=== PATIENT | male | born 1965 | race Two or more races ===

== ENCOUNTER 2025-03-24 22:28 | Emergency (ER) | payer OTHER ==
[~2025-03-24] VITALS: Ht 185.4 cm; Wt 82.6 kg
[2025-03-24] MEDS ORDERED: AMLODIPINE-OLM1 EACH (23:48)
[2025-03-25 02:12] LABS: BASO % 1.5 % (0.1-1.2); EOS # 2.11 (0.04-0.54); HEMOGLOBIN 12.5 g/dL (13.7-17.5); LYMPH % 11.8 % (19.3-53.1); MEAN CORPUSCULAR HEMOGLOBIN 31.2 pg (25.6-32.2); MONO # 0.67 (0.24-0.82); MONO % 6.6 % (4.7-12.5); NEUT # 5.99 (1.56-6.13); RED BLOOD COUNT 4.01 M/uL (4.63-6.08); RED CELL DISTRIBUTION WIDTH 14.7 % (11.6-14.4)
[2025-03-25 02:15] LABS: EOS % 20.8 % (0.7-7.0); PLATELET COUNT 121 K/uL (163-369)
== END 2025-03-25 03:54 | disposition home or self-care (01) ==
LOC: ER 22:54
DX: K42.9 Umbilical hernia without obstruction or gangrene (principal)

== ENCOUNTER 2025-06-01 17:20 | Inpatient (IN) | payer OTHER ==
[~2025-06-01 17:20] MED LIST: AMLODIPINE-OLM1 EACH
[2025-06-01 17:30] VITALS: BP 130/80
[2025-06-01] MEDS ORDERED: FENTANYL1 EAC3 (18:11)
[2025-06-01] MEDS ORDERED: ALDACTONE100 MG (18:11)
[2025-06-01] MEDS ORDERED: LASIX40 MG (18:11)
[2025-06-01] MEDS ORDERED: KRISTALOSE10 GM (18:11)
[2025-06-01] MEDS ORDERED: SODIUM CHLORIDE 0.45 % 1,000 ML IV SCH (18:30)
[2025-06-01] MEDS ORDERED: TRAMADOL HCL 50 MG TABLET PO SCH (18:33)
[2025-06-01] MEDS ORDERED: AMINO ACIDS/PROTEIN HYDROLYS 30 ML BLIST.PACK PO NR (19:00)
[2025-06-01 19:21] LABS: BASO % 0.7 % (0.1-1.2); EOS # 0.24 (0.04-0.54); EOS % 2.3 % (0.7-7.0); LYMPH # 0.88 (1.18-3.74); LYMPH % 8.5 % (19.3-53.1); MEAN PLATELET VOLUME 11.10 fl (9.4-12.4); MONO # 0.58 (0.24-0.82); MONO % 5.6 % (4.7-12.5); NEUT # 8.58 (1.56-6.13); NEUT % 82.4 % (34.0-71.1); RED CELL DISTRIBUTION WIDTH 17.0 % (11.6-14.4)
[2025-06-01 19:26] LABS: ERYTHROCYTE SEDIMENTATION RATE 108 mm/hr (0-20)
[2025-06-01 19:49] LABS: INR 1.49
[2025-06-01 20:01] LABS: ALT/SGPT 29.0 U/L (12-78); AST/SGOT 95.0 U/L (15-37); BILIRUBIN TOTAL 2.17 mg/dL (0.3-1.2); BUN CREA RATIO 18.0 (7.0-25.0); CREATININE SERUM 0.57 mg/dL (0.70-1.30); GFR 145.32; GLOBULINA 5.2 G/DL (2.4-3.5); GLUCOSE FASTING 121.0 mg/dL (65-100); LDH 328.0 U/L (87-241); OSMOLALITY SERUM 263.0 MOSM/KG (275-295)
[2025-06-01] MEDS ORDERED: FAMOTIDINE/PF 20 MG in 0.9 % SODIUM CHLORIDE 8 ML IV PUSH SCH (21:00)
[2025-06-01] MEDS ORDERED: ALBUMIN HUMAN-25 0.25GM/ML (50ML) VIAL IV SCH (21:00)
[2025-06-01 21:12] LABS: URINE APPEARANCE Cloudy; URINE BILIRRUBIN Small (NEGATIVE); URINE BLOOD Negative; URINE COLOR Dark Yellow; URINE GLUCOSE Negative (NEGATIVE); URINE KETONE Trace (NEGATIVE); URINE LEUKOCYTE Trace; URINE NITRATE Positive; URINE PROTEIN Trace (NEGATIVE); URINE UROBILINOGEN 1.0 E.U./dl
[2025-06-01 21:16] LABS: URINE BACTERIA 18.0 uL (0.0-1933); URINE CAST 13.05 uL (0.0-1.40); URINE EPITHELIAL CELLS 26.7 uL (0.0-38.8); URINE RBC 29.1 uL (0.0-20.8); URINE WBC 11.0 uL (0.0-23.2)
[2025-06-01 21:28] LABS: URINE CRYSTALS MODERATE /HPF
[2025-06-02 02:23] VITALS: BP 117/68; O2SAT 96
[2025-06-02] MEDS ORDERED: PHYTONADIONE 10 MG/ML AMPUL IV SCH (09:00)
[2025-06-02] MEDS ORDERED: AMINO ACIDS/PROTEIN HYDROLYS 30 ML BLIST.PACK PO SCH (09:00)
[2025-06-02] MEDS ORDERED: DIPHENHYDRAMINE HCL 50 MG/ML VIAL 1ML IV STA (09:07)
[2025-06-02] MEDS ORDERED: METHYLPREDNISOLONE SOD SUCC 125 MG VIAL IV STA (09:07)
[2025-06-02 09:11] VITALS: BP 145/77; O2SAT 96
[2025-06-02 18:03] VITALS: BP 131/80; O2SAT 96
[2025-06-02] MEDS ORDERED: LACTULOSE 20 G/30 ML BLIST.PACK PO ONE (19:30)
[2025-06-02] MEDS ORDERED: MINERAL OIL 30 ML BLIST.PACK PO ONE (19:30)
[2025-06-02] MEDS ORDERED: MAGNESIUM HYDROXIDE 400 MG/5 ML ML PO ONE (19:30)
[2025-06-03 01:00] VITALS: BP 119/67; O2SAT 95
[2025-06-03 08:53] VITALS: BP 118/75; O2SAT 94
[2025-06-03 18:00] VITALS: BP 117/63; O2SAT 97
[2025-06-03] MEDS ORDERED: MORPHINE SULFATE 2 MG/ML CARTRIDGE IV STA (18:13)
[2025-06-03] MEDS ORDERED: MORPHINE SULFATE 2 MG/ML CARTRIDGE IV PRN (18:15)
[2025-06-03 22:41] VITALS: BP 118/75; O2SAT 96
[2025-06-04 02:09] VITALS: BP 100/62; O2SAT 97
[2025-06-04 06:48] LABS: BASO % 0.2 % (0.1-1.2); EOS # 0.02 (0.04-0.54); EOS % 0.2 % (0.7-7.0); LYMPH # 1.20 (1.18-3.74); LYMPH % 9.2 % (19.3-53.1); MEAN PLATELET VOLUME 11.50 fl (9.4-12.4); MONO # 0.68 (0.24-0.82); MONO % 5.2 % (4.7-12.5); NEUT # 11.03 (1.56-6.13); NEUT % 84.4 % (34.0-71.1); RED CELL DISTRIBUTION WIDTH 17.1 % (11.6-14.4)
[2025-06-04 07:11] LABS: ALT/SGPT 21.0 U/L (12-78); AST/SGOT 81.0 U/L (15-37); BILIRUBIN TOTAL 2.74 mg/dL (0.3-1.2); BUN CREA RATIO 32.0 (7.0-25.0); CREATININE SERUM 0.65 mg/dL (0.70-1.30); GFR 124.88; GLOBULINA 3.8 G/DL (2.4-3.5); GLUCOSE FASTING 113.0 mg/dL (65-100); INR 1.48; OSMOLALITY SERUM 268.0 MOSM/KG (275-295)
[2025-06-04 09:39] VITALS: BP 112/68; O2SAT 94
[2025-06-04 18:11] VITALS: BP 121/70; O2SAT 97
[2025-06-05 00:57] VITALS: BP 127/75; O2SAT 96
[2025-06-05 08:00] VITALS: BP 142/82; O2SAT 95
[2025-06-05] MEDS ORDERED: LACTULOSE 20 G/30 ML BLIST.PACK PO STA (09:08)
[2025-06-05 10:36] LABS: BASO % 0.6 % (0.1-1.2); EOS # 0.13 (0.04-0.54); EOS % 0.8 % (0.7-7.0); LYMPH # 2.09 (1.18-3.74); LYMPH % 13.1 % (19.3-53.1); MEAN PLATELET VOLUME 10.90 fl (9.4-12.4); MONO # 1.54 (0.24-0.82); MONO % 9.7 % (4.7-12.5); NEUT # 11.96 (1.56-6.13); NEUT % 75.2 % (34.0-71.1); RED CELL DISTRIBUTION WIDTH 17.0 % (11.6-14.4)
[2025-06-05] MEDS ORDERED: LACTULOSE 20 G/30 ML BLIST.PACK PO SCH (17:00)
[2025-06-05 18:14] VITALS: BP 133/77; O2SAT 96
[2025-06-05] MEDS ORDERED: OxyCODONE HCL 5 MG TABLET (ROXICODONE) PO PRN (19:00)
[2025-06-06 00:50] VITALS: BP 135/73; O2SAT 98
[2025-06-06 08:02] LABS: BUN CREA RATIO 43.0 (7.0-25.0); CREATININE SERUM 0.61 mg/dL (0.70-1.30); GFR 134.38; GLUCOSE FASTING 101.0 mg/dL (65-100); OSMOLALITY SERUM 273.0 MOSM/KG (275-295)
[2025-06-06 08:14] VITALS: BP 130/77; O2SAT 96
[2025-06-06] MEDS ORDERED: LACTULOSE 20 G/30 ML BLIST.PACK PO SCH (13:00)
[2025-06-06] MEDS ORDERED: NA PHOS,M-B/NA PHOS,DI-BA 1 BOTTLE ENEMA RECTAL STA (13:23)
[2025-06-06] MEDS ORDERED: FAMOTIDINE/PF 20 MG/2 ML VIAL ONE (15:34)
[2025-06-06] MEDS ORDERED: HALOPERIDOL LACTATE 5 MG/ML AMPUL IV PRN (16:45)
[2025-06-06] MEDS ORDERED: NA PHOS,M-B/NA PHOS,DI-BA 1 BOTTLE ENEMA RECTAL SCH (17:00)
[2025-06-06] MEDS ORDERED: SODIUM PHOSPHATE,MONO-DIBASIC 230 ML ENEMA RECTAL SCH (17:00)
[2025-06-06] MEDS ORDERED: HALOPERIDOL LACTATE 5 MG/ML AMPUL ONE (17:58)
[2025-06-06 19:17] VITALS: BP 158/83; O2SAT 97
[2025-06-07 00:53] VITALS: BP 148/80; O2SAT 97
[2025-06-07 11:12] VITALS: BP 144/77; O2SAT 96
[2025-06-07] MEDS ORDERED: BENZONATATE 200 MG CAPSULE PO SCH (13:37)
[2025-06-07] MEDS ORDERED: ALBUTEROL SULFATE 3 ML/2.5 MG AMPUL.NEB IH STA (13:40)
[2025-06-07] MEDS ORDERED: FAMOTIDINE/PF 20 MG/2 ML VIAL ONE (15:47)
[2025-06-07 16:53] VITALS: BP 157/50; O2SAT 97
[2025-06-07] MEDS ORDERED: ALBUTEROL SULFATE 3 ML/2.5 MG AMPUL.NEB IH SCH (17:00)
[2025-06-07] MEDS ORDERED: LACTOBACILLUS ACIDOPHILUS 1 CAP CAP PO SCH (17:00)
[2025-06-07] MEDS ORDERED: NA PHOS,M-B/NA PHOS,DI-BA 1 BOTTLE ENEMA RECTAL ONE (18:13)
[2025-06-08 00:08] VITALS: BP 162/94; O2SAT 99
[2025-06-08 01:52] LABS: BUN CREA RATIO 28.0 (7.0-25.0); CHOL HDL RATIO 11.3 (0-5.0); CREATININE SERUM 0.65 mg/dL (0.70-1.30); GFR 124.88; GLUCOSE FASTING 107.0 mg/dL (65-100); LDL 106.0 mg/dl (0-130); OSMOLALITY SERUM 272.0 MOSM/KG (275-295); VLDL 16.0 (0-39)
[2025-06-08 02:00] LABS: HDL 12.0 mg/dl (40-60)
[2025-06-08 02:27] VITALS: BP 160/80; O2SAT 97
[2025-06-08] MEDS ORDERED: CEFTRIAXONE SODIUM 1,000 MG VIAL IV STA (03:06)
[2025-06-08 08:19] VITALS: BP 114/75
[2025-06-08] MEDS ORDERED: CEFTRIAXONE SODIUM 1,000 MG VIAL IV SCH (09:00)
[2025-06-08] MEDS ORDERED: THIAMINE HCL 100 MG/ML 2 ML VIAL IV SCH (13:07)
[2025-06-08] MEDS ORDERED: FAMOTIDINE/PF 20 MG/2 ML VIAL ONE (15:39)
[2025-06-08 16:43] VITALS: BP 133/83
[2025-06-08] MEDS ORDERED: AMINO ACIDS 4.25 %/DEXTROSE 5% 1,000 ML PERIFERAL SCH (17:00)
[2025-06-08] MEDS ORDERED: LEVALBUTEROL HCL 0.63 MG/3 ML SOLUTION IH ONE (17:17)
[2025-06-08] MEDS ORDERED: LEVALBUTEROL HCL 0.63 MG/3 ML SOLUTION IH SCH (21:00)
[2025-06-09 00:58] VITALS: BP 143/71; O2SAT 94
[2025-06-09 04:54] LABS: ERYTHROCYTE SEDIMENTATION RATE 93 mm/hr (0-20)
[2025-06-09 04:55] LABS: BASO % 0.4 % (0.1-1.2); EOS # 0.16 (0.04-0.54); EOS % 1.3 % (0.7-7.0); LYMPH # 1.33 (1.18-3.74); LYMPH % 10.5 % (19.3-53.1); MEAN PLATELET VOLUME 11.30 fl (9.4-12.4); MONO # 1.02 (0.24-0.82); MONO % 8.0 % (4.7-12.5); NEUT # 10.09 (1.56-6.13); NEUT % 79.4 % (34.0-71.1); RED CELL DISTRIBUTION WIDTH 16.8 % (11.6-14.4)
[2025-06-09 05:18] LABS: ALT/SGPT 30.0 U/L (12-78); AST/SGOT 94.0 U/L (15-37); BILIRUBIN TOTAL 3.83 mg/dL (0.3-1.2); BUN CREA RATIO 30.0 (7.0-25.0); GFR 136.97; GLOBULINA 4.3 G/DL (2.4-3.5); GLUCOSE FASTING 95.0 mg/dL (65-100); OSMOLALITY SERUM 264.0 MOSM/KG (275-295)
[2025-06-09 05:24] LABS: CREATININE SERUM 0.6 mg/dL (0.70-1.30)
[2025-06-09 08:00] VITALS: BP 129/74; O2SAT 96
[2025-06-09] MEDS ORDERED: CEFAZOLIN SODIUM 1,000 MG VIAL IV SCH (17:00)
[2025-06-09 17:52] VITALS: BP 160/87
[2025-06-10 00:38] VITALS: BP 137/79; O2SAT 96
[2025-06-10 08:36] VITALS: BP 126/77; O2SAT 96
[2025-06-10 15:18] LABS: BASO % 0.5 % (0.1-1.2); EOS # 0.23 (0.04-0.54); EOS % 1.8 % (0.7-7.0); LYMPH # 1.00 (1.18-3.74); LYMPH % 7.7 % (19.3-53.1); MEAN PLATELET VOLUME 11.40 fl (9.4-12.4); MONO # 0.74 (0.24-0.82); MONO % 5.7 % (4.7-12.5); NEUT # 10.87 (1.56-6.13); NEUT % 83.8 % (34.0-71.1); RED CELL DISTRIBUTION WIDTH 17.0 % (11.6-14.4)
[2025-06-10 17:35] VITALS: BP 146/94; O2SAT 97
[2025-06-11 02:13] VITALS: BP 143/76; O2SAT 97
[2025-06-11 08:13] VITALS: BP 128/76; O2SAT 97
[2025-06-11 17:07] VITALS: BP 141/74; O2SAT 95
[2025-06-12 01:05] VITALS: BP 155/83; O2SAT 97
[2025-06-12 08:12] VITALS: BP 145/77; O2SAT 97
[2025-06-12] MEDS ORDERED: THIAMINE HCL 100 MG TABLET PO SCH (09:00)
[2025-06-12] MEDS ORDERED: SPIRONOLACTONE 50 MG TABLET PO SCH (09:00)
[2025-06-12 19:22] VITALS: BP 159/85; O2SAT 100
[2025-06-12] MEDS ORDERED: LACTULOSE 20 G/30 ML BLIST.PACK PO SCH (21:00)
[2025-06-13 02:06] VITALS: BP 149/82; O2SAT 98
[2025-06-13 08:04] LABS: BASO % 0.5 % (0.1-1.2); EOS # 0.21 (0.04-0.54); EOS % 1.4 % (0.7-7.0); LYMPH # 1.09 (1.18-3.74); LYMPH % 7.5 % (19.3-53.1); MEAN PLATELET VOLUME 12.20 fl (9.4-12.4); MONO # 0.79 (0.24-0.82); MONO % 5.4 % (4.7-12.5); NEUT # 12.27 (1.56-6.13); NEUT % 84.6 % (34.0-71.1); RED CELL DISTRIBUTION WIDTH 17.2 % (11.6-14.4)
[2025-06-13 08:20] LABS: ALT/SGPT 19.0 U/L (12-78); AST/SGOT 79.0 U/L (15-37); BILIRUBIN TOTAL 5.26 mg/dL (0.3-1.2); BUN CREA RATIO 32.0 (7.0-25.0); CREATININE SERUM 0.56 mg/dL (0.70-1.30); GFR 148.32; GLOBULINA 4.9 G/DL (2.4-3.5); GLUCOSE FASTING 93.0 mg/dL (65-100); OSMOLALITY SERUM 270.0 MOSM/KG (275-295)
[2025-06-13 08:24] VITALS: BP 132/73
[2025-06-13 08:55] LABS: INR 1.48
[2025-06-13] MEDS ORDERED: NA PHOS,M-B/NA PHOS,DI-BA 1 BOTTLE ENEMA RECTAL NR (09:00)
[2025-06-13] MEDS ORDERED: AMINO ACIDS 4.25 %/DEXTROSE 5% 1,000 ML PERIFERAL SCH (17:00)
[2025-06-13 17:29] VITALS: BP 152/91
[2025-06-14 02:37] VITALS: BP 149/80; O2SAT 98
[2025-06-14 08:58] VITALS: BP 148/83
[2025-06-14 11:18] LABS: URINE APPEARANCE Clear; URINE BILIRRUBIN Small (NEGATIVE); URINE BLOOD Negative; URINE COLOR Dark Yellow; URINE GLUCOSE Negative (NEGATIVE); URINE KETONE Trace (NEGATIVE); URINE LEUKOCYTE Trace; URINE NITRATE Negative; URINE PROTEIN Trace (NEGATIVE); URINE UROBILINOGEN 1.0 E.U./dl
[2025-06-14 11:34] LABS: URINE EPITHELIAL CELLS 0-4 /HPF; URINE RBC 0-3 /HPF; URINE WBC 0-2 /hpf
[2025-06-14 11:35] LABS: URINE BACTERIA FEW; URINE CRYSTALS MODERATE /HPF
[2025-06-14] MEDS ORDERED: DOCUSATE SODIUM 100MG CAP PO SCH (17:00)
[2025-06-14 18:07] VITALS: BP 149/84; O2SAT 97
[2025-06-15 02:53] VITALS: BP 131/78; O2SAT 96
[2025-06-15 06:16] LABS: BASO % 0.6 % (0.1-1.2); EOS # 0.24 (0.04-0.54); EOS % 1.9 % (0.7-7.0); LYMPH # 1.16 (1.18-3.74); LYMPH % 9.1 % (19.3-53.1); MEAN PLATELET VOLUME 11.90 fl (9.4-12.4); MONO # 0.90 (0.24-0.82); MONO % 7.1 % (4.7-12.5); NEUT # 10.28 (1.56-6.13); NEUT % 80.7 % (34.0-71.1); RED CELL DISTRIBUTION WIDTH 17.2 % (11.6-14.4)
[2025-06-15 06:44] LABS: INR 1.52
[2025-06-15 06:59] LABS: ALT/SGPT 18.0 U/L (12-78); AST/SGOT 88.0 U/L (15-37); BILIRUBIN TOTAL 4.74 mg/dL (0.3-1.2); BILIRUBIN,CONJUGATED 3.01 mg/dL (0.0-0.2); BUN CREA RATIO 36.0 (7.0-25.0); CHOL HDL RATIO 12.6 (0-5.0); CREATININE SERUM 0.61 mg/dL (0.70-1.30); GFR 134.38; GLOBULINA 5.0 G/DL (2.4-3.5); GLUCOSE FASTING 96.0 mg/dL (65-100); LDL 108.0 mg/dl (0-130); OSMOLALITY SERUM 270.0 MOSM/KG (275-295); VLDL 19.0 (0-39)
[2025-06-15 07:00] LABS: HDL 11.0 mg/dl (40-60)
[2025-06-15 08:28] VITALS: BP 144/83
[2025-06-15 10:56] LABS: UREA CLEARANCE 23.3 ML/MIN
[2025-06-15 17:16] VITALS: BP 145/84; O2SAT 96
[2025-06-15] MEDS ORDERED: ZOLEDRONIC ACID 4MG/5ML VIAL IV ONE (19:30)
[2025-06-15] MEDS ORDERED: MAGNESIUM SULFATE/D5W 100 ML IV NR (20:00)
[2025-06-15] MEDS ORDERED: CALCITONIN,SALMON,SYNTHETIC 400 UNIT/2ML VIAL SUBCUTANEO SCH (21:00)
[2025-06-16 01:38] VITALS: BP 146/83; O2SAT 94
[2025-06-16 08:47] VITALS: BP 137/84; O2SAT 97
[2025-06-16 18:56] VITALS: BP 153/83; O2SAT 100
[2025-06-17 00:51] VITALS: BP 144/79; O2SAT 96
[2025-06-17 07:58] VITALS: BP 121/85
[2025-06-17 16:44] VITALS: BP 135/82
[2025-06-18 02:06] VITALS: BP 132/82; O2SAT 97
[2025-06-18 08:35] VITALS: BP 143/81
[2025-06-18 17:35] VITALS: BP 142/82; O2SAT 96
[2025-06-19 04:33] VITALS: BP 123/76; O2SAT 98
[2025-06-19 06:46] LABS: BASO % 0.5 % (0.1-1.2); EOS # 0.29 (0.04-0.54); EOS % 1.9 % (0.7-7.0); LYMPH # 1.15 (1.18-3.74); LYMPH % 7.4 % (19.3-53.1); MEAN PLATELET VOLUME 11.20 fl (9.4-12.4); MONO # 0.95 (0.24-0.82); MONO % 6.1 % (4.7-12.5); NEUT # 13.07 (1.56-6.13); NEUT % 83.5 % (34.0-71.1); RED CELL DISTRIBUTION WIDTH 17.8 % (11.6-14.4)
[2025-06-19 07:29] LABS: BUN CREA RATIO 53.0 (7.0-25.0); CREATININE SERUM 0.59 mg/dL (0.70-1.30); GFR 139.65; GLUCOSE FASTING 104.0 mg/dL (65-100); OSMOLALITY SERUM 266.0 MOSM/KG (275-295)
[2025-06-19 10:00] VITALS: BP 124/81; O2SAT 100
[2025-06-19] MEDS ORDERED: fentaNYL CITRATE 50 MCG/ML AMPUL IV PUSH ONE (16:30)
[2025-06-19] MEDS ORDERED: MIDAZOLAM HCL 2 MG/2 ML VIAL IV PUSH ONE (16:30)
[2025-06-19 23:13] VITALS: BP 116/75
[2025-06-20] MEDS ORDERED: OxyCODONE HCL 5 MG TABLET (ROXICODONE) PO PRN (01:30)
[2025-06-20 02:10] VITALS: BP 129/77; O2SAT 96
[2025-06-20 09:38] VITALS: BP 117/77
[2025-06-20] MEDS ORDERED: LACTULOSE 20 G/30 ML BLIST.PACK PO STA (13:48)
[2025-06-20 18:58] VITALS: BP 138/82; O2SAT 96
[2025-06-21 01:59] VITALS: BP 129/83; O2SAT 98
[2025-06-21 08:03] VITALS: BP 131/83
[2025-06-21 08:15] LABS: BASO % 0.6 % (0.1-1.2); EOS # 0.24 (0.04-0.54); EOS % 1.5 % (0.7-7.0); LYMPH # 1.15 (1.18-3.74); LYMPH % 7.2 % (19.3-53.1); MEAN PLATELET VOLUME 12.20 fl (9.4-12.4); MONO # 0.88 (0.24-0.82); MONO % 5.5 % (4.7-12.5); NEUT # 13.60 (1.56-6.13); NEUT % 84.5 % (34.0-71.1); RED CELL DISTRIBUTION WIDTH 18.0 % (11.6-14.4)
[2025-06-21 08:54] LABS: ALT/SGPT 14.0 U/L (12-78); AST/SGOT 108.0 U/L (15-37); BILIRUBIN TOTAL 5.86 mg/dL (0.3-1.2); BUN CREA RATIO 45.0 (7.0-25.0); CREATININE SERUM 0.55 mg/dL (0.70-1.30); GFR 151.44; GLOBULINA 5.3 G/DL (2.4-3.5); GLUCOSE FASTING 74.0 mg/dL (65-100); OSMOLALITY SERUM 262.0 MOSM/KG (275-295)
[2025-06-21] MEDS ORDERED: LACTULOSE 20 G/30 ML BLIST.PACK PO SCH (09:00)
[2025-06-21 19:39] VITALS: BP 124/71; O2SAT 98
[2025-06-22 02:04] VITALS: BP 122/76; O2SAT 99
[2025-06-22 08:00] VITALS: BP 135/70
[2025-06-22 18:47] VITALS: BP 110/66
[2025-06-23 02:08] VITALS: BP 138/85; O2SAT 97
[2025-06-23 08:23] VITALS: BP 120/81; O2SAT 99
[2025-06-23 11:59] LABS: BASO % 0.6 % (0.1-1.2); EOS # 0.30 (0.04-0.54); EOS % 2.0 % (0.7-7.0); LYMPH # 1.36 (1.18-3.74); LYMPH % 8.9 % (19.3-53.1); MEAN PLATELET VOLUME 11.50 fl (9.4-12.4); MONO # 1.00 (0.24-0.82); MONO % 6.5 % (4.7-12.5); NEUT # 12.48 (1.56-6.13); NEUT % 81.4 % (34.0-71.1); RED CELL DISTRIBUTION WIDTH 19.3 % (11.6-14.4)
[2025-06-23] MEDS ORDERED: SPIRONOLACTONE50 MG PO (12:42)
[2025-06-23] MEDS ORDERED: FENTANYL1 EAC3 TOP (12:49)
[2025-06-23] MEDS ORDERED: LACTULOSE10 GM/152 PO (12:50)
[2025-06-23] MEDS ORDERED: OXYCODONE HCL5 MG PO (12:50)
[2025-06-23] MEDS ORDERED: INTESTINEX680 M1 PO (12:51)
[2025-06-23] MEDS ORDERED: FAMOTIDINE20 MG PO (12:51)
[2025-06-23] MEDS ORDERED: COLACE100 MG PO (12:51)
[2025-06-23] MEDS ORDERED: THIAMINE HCL100 MG PO (12:52)
[2025-06-23] MEDS ORDERED: PROTEINEX-18 LI30 ML PO (12:52)
[2025-06-23] MEDS ORDERED: B Complex PO (12:52)
[2025-06-23 16:10] VITALS: BP 122/76; O2SAT 99
== END 2025-06-23 17:00 | disposition home or self-care (01) | DRG 436 ==
LOC: MEDJ 17:20
PROVIDERS: Internal Medicine Infectious Disease; Specialist/Technologist, Other Nephrology; ADMIT Internal Medicine Hematology & Oncology; ATTEND Internal Medicine Hematology & Oncology
PROC: 8E0ZXY6 Isolation (ICD-10-PCS; principal; 2025-06-01)
PROC: BW21YZZ Computerized Tomography (CT Scan) of Abdomen and Pelvis using Other Contrast (ICD-10-PCS; 2025-06-01)
PROC: 0W9G3ZZ Drainage of Peritoneal Cavity, Percutaneous Approach (ICD-10-PCS; 2025-06-03)
PROC: B54CZZZ Ultrasonography of Left Lower Extremity Veins (ICD-10-PCS; 2025-06-03)
PROC: 30233N1 Transfusion of Nonautologous Red Blood Cells into Peripheral Vein, Percutaneous Approach (ICD-10-PCS; 2025-06-04)
PROC: 3E0F7GC Introduction of Other Therapeutic Substance into Respiratory Tract, Via Natural or Artificial Opening (ICD-10-PCS; 2025-06-07)
PROC: 0W9G3ZZ Drainage of Peritoneal Cavity, Percutaneous Approach (ICD-10-PCS; 2025-06-10)
PROC: B246ZZZ Ultrasonography of Right and Left Heart (ICD-10-PCS; 2025-06-10)
PROC: 0W9G3ZZ Drainage of Peritoneal Cavity, Percutaneous Approach (ICD-10-PCS; 2025-06-15)
PROC: 02HV33Z Insertion of Infusion Device into Superior Vena Cava, Percutaneous Approach (ICD-10-PCS; 2025-06-15)
PROC: B548ZZA Ultrasonography of Superior Vena Cava, Guidance (ICD-10-PCS; 2025-06-15)
PROC: 3E0436Z Introduction of Nutritional Substance into Central Vein, Percutaneous Approach (ICD-10-PCS; 2025-06-15)
PROC: 0W9G30Z Drainage of Peritoneal Cavity with Drainage Device, Percutaneous Approach (ICD-10-PCS; 2025-06-19)
DX: C22.0 Liver cell carcinoma (principal); E46 Unspecified protein-calorie malnutrition; E87.1 Hypo-osmolality and hyponatremia; R78.81 Bacteremia; R64 Cachexia; N39.0 Urinary tract infection, site not specified; K70.31 Alcoholic cirrhosis of liver with ascites; K76.82 Hepatic encephalopathy; D63.0 Anemia in neoplastic disease; D64.89 Other specified anemias; G89.3 Neoplasm related pain (acute) (chronic); M54.89 Other dorsalgia; R10.84 Generalized abdominal pain; R22.43 Localized swelling, mass and lump, lower limb, bilateral; E83.52 Hypercalcemia; E88.09 Other disorders of plasma-protein metabolism, not elsewhere classified; K42.9 Umbilical hernia without obstruction or gangrene; K40.90 Unilateral inguinal hernia, without obstruction or gangrene, not specified as recurrent; I87.2 Venous insufficiency (chronic) (peripheral); B95.61 Methicillin susceptible Staphylococcus aureus infection as the cause of diseases classified elsewhere; F10.20 Alcohol dependence, uncomplicated; Y90.9 Presence of alcohol in blood, level not specified
CPT/HCPCS: 240

== ENCOUNTER 2025-07-02 17:46 | Inpatient (IN) | payer OTHER ==
[~2025-07-02] VITALS: Ht 185.4 cm; Wt 45.4 kg
[~2025-07-02 17:46] MED LIST changes: +ALDACTONE100 MG; +B Complex PO; +COLACE100 MG PO; +FAMOTIDINE20 MG PO; +FENTANYL1 EAC3; +FENTANYL1 EAC3 TOP; +INTESTINEX680 M1 PO; +KRISTALOSE10 GM; +LACTULOSE10 GM/152 PO; +LASIX40 MG; +OXYCODONE HCL5 MG PO; +PROTEINEX-18 LI30 ML PO; +SPIRONOLACTONE50 MG PO; +THIAMINE HCL100 MG PO
[2025-07-02] MEDS ORDERED: 0.9 % SODIUM CHLORIDE 1,000 ML IV STA (19:37)
[2025-07-02] MEDS ORDERED: LACTULOSE 20 G/30 ML BLIST.PACK PO STA (19:39)
[2025-07-02] MEDS ORDERED: LACTULOSE 20 G/30 ML BLIST.PACK ONE (19:52)
[2025-07-02] MEDS ORDERED: MORPHINE SULFATE 4 MG/ML CARTRIDGE IV STA (20:31)
[2025-07-02] MEDS ORDERED: FAMOTIDINE/PF 20 MG/2 ML VIAL ONE ×2 (20:42→20:49)
[2025-07-02 20:43] LABS: BASO % 0.5 % (0.1-1.2); EOS # 0.49 (0.04-0.54); EOS % 4.1 % (0.7-7.0); LYMPH # 0.96 (1.18-3.74); LYMPH % 8.0 % (19.3-53.1); MEAN PLATELET VOLUME 10.40 fl (9.4-12.4); MONO # 0.78 (0.24-0.82); MONO % 6.5 % (4.7-12.5); NEUT # 9.67 (1.56-6.13); NEUT % 80.2 % (34.0-71.1); RED CELL DISTRIBUTION WIDTH 20.5 % (11.6-14.4)
[2025-07-02] MEDS ORDERED: FAMOTIDINE/PF 20 MG/2 ML VIAL IV PUSH STA (20:44)
[2025-07-02 21:10] LABS: URINE APPEARANCE Clear; URINE BILIRRUBIN Small (NEGATIVE); URINE BLOOD Negative; URINE COLOR Dark Yellow; URINE GLUCOSE Negative (NEGATIVE); URINE KETONE Negative (NEGATIVE); URINE LEUKOCYTE Small; URINE NITRATE Positive; URINE PROTEIN Trace (NEGATIVE); URINE UROBILINOGEN 0.2 E.U./dl
[2025-07-02 21:13] LABS: URINE BACTERIA 87.6 uL (0.0-1933); URINE CAST 14.07 uL (0.0-1.40); URINE EPITHELIAL CELLS 8.4 uL (0.0-38.8); URINE RBC 51.1 uL (0.0-20.8); URINE WBC 33.0 uL (0.0-23.2)
[2025-07-02 21:14] LABS: ALT/SGPT 21.0 U/L (12-78); AST/SGOT 140.0 U/L (15-37); BILIRUBIN TOTAL 7.84 mg/dL (0.3-1.2); BUN CREA RATIO 27.0 (7.0-25.0); CREATININE SERUM 1.81 mg/dL (0.70-1.30); GFR 38.3; GLOBULINA 5.1 G/DL (2.4-3.5); GLUCOSE FASTING 107.0 mg/dL (65-100); INR 1.74
[2025-07-02 21:23] LABS: OSMOLALITY SERUM 265.0 MOSM/KG (275-295)
[2025-07-02 21:48] LABS: TYPE CELLS SQUAMOUS; URINE CRYSTALS FEW /HPF; URINE MUCUS SCANT
[2025-07-02] MEDS ORDERED: CEFTRIAXONE SODIUM 2,000 MG in 0.9 % SODIUM CHLORIDE 100 ML IV SCH (23:22)
[2025-07-02] MEDS ORDERED: 0.9 % SODIUM CHLORIDE 1,000 ML IV SCH (23:30)
[2025-07-02] MEDS ORDERED: CALCIUM GLUCONATE 100 MG/ML VIAL IV ONE (23:30)
[2025-07-02] MEDS ORDERED: PANTOPRAZOLE SODIUM 40 MG in 0.9 % SODIUM CHLORIDE 8 ML IV PUSH SCH (23:34)
[2025-07-03 01:11] LABS: BASO % 0.6 % (0.1-1.2); EOS # 0.34 (0.04-0.54); EOS % 2.9 % (0.7-7.0); LYMPH # 0.83 (1.18-3.74); LYMPH % 7.2 % (19.3-53.1); MEAN PLATELET VOLUME 10.50 fl (9.4-12.4); MONO # 0.77 (0.24-0.82); MONO % 6.7 % (4.7-12.5); NEUT # 9.45 (1.56-6.13); NEUT % 82.0 % (34.0-71.1); RED CELL DISTRIBUTION WIDTH 20.1 % (11.6-14.4)
[2025-07-03 02:14] VITALS: BP 117/61
[2025-07-03 06:24] LABS: BASO % 0.7 % (0.1-1.2); EOS # 0.48 (0.04-0.54); EOS % 4.4 % (0.7-7.0); LYMPH # 0.92 (1.18-3.74); LYMPH % 8.5 % (19.3-53.1); MEAN PLATELET VOLUME 10.60 fl (9.4-12.4); MONO # 0.84 (0.24-0.82); MONO % 7.7 % (4.7-12.5); NEUT # 8.49 (1.56-6.13); NEUT % 78.1 % (34.0-71.1); RED CELL DISTRIBUTION WIDTH 20.3 % (11.6-14.4)
[2025-07-03 08:21] VITALS: BP 101/67; O2SAT 98
[2025-07-03 11:30] LABS: ABG PH 7.426 (7.35-7.45); ABG PO2 97.1 mmHg (80-100); BICARBONATE 17.2 mmol/l (23-25)
[2025-07-03 11:31] LABS: o2 21 %
[2025-07-03 21:23] VITALS: O2SAT 96
[2025-07-03 22:23] VITALS: BP 106/73
[2025-07-04 00:31] VITALS: O2SAT 99
[2025-07-04 03:49] VITALS: BP 106/63; O2SAT 98
[2025-07-04 08:39] VITALS: BP 106/71
[2025-07-04 16:00] VITALS: O2SAT 88
[2025-07-04 18:53] VITALS: BP 91/66
[2025-07-04] MEDS ORDERED: SODIUM POLYSTYRENE SULFONATE 15 G/4 TSP TSP PO SCH (20:05)
[2025-07-04 23:58] VITALS: O2SAT 94
[2025-07-05 03:35] VITALS: BP 127/76; O2SAT 98
[2025-07-05 08:38] LABS: BUN CREA RATIO 26.0 (7.0-25.0); CREATININE SERUM 2.37 mg/dL (0.70-1.30); GFR 28.06; GLUCOSE FASTING 87.0 mg/dL (65-100); OSMOLALITY SERUM 270.0 MOSM/KG (275-295)
[2025-07-05] MEDS ORDERED: fentaNYL 50 MCG PATCH.TD72 TD PRN (10:15)
[2025-07-05] MEDS ORDERED: SODIUM POLYSTYRENE SULFONATE 30G/8 TSP PO SCH (12:00)
[2025-07-05] MEDS ORDERED: SODIUM POLYSTYRENE SULFONATE 30G/8 TSP PO ONE (12:00)
[2025-07-05 13:42] VITALS: O2SAT 99
[2025-07-05 17:49] VITALS: O2SAT 98
[2025-07-05 19:25] VITALS: BP 106/68
[2025-07-05 22:30] VITALS: O2SAT 97
[2025-07-05 23:51] VITALS: O2SAT 97
[2025-07-06] VITALS (8 sets, daily range): BP systolic 96–103; BP diastolic 58–67; O2SAT 97–100
[2025-07-06] MEDS ORDERED: MORPHINE SULFATE 4 MG/ML CARTRIDGE IV STA (00:19)
[2025-07-06 06:12] LABS: BASO % 0.7 % (0.1-1.2); EOS # 0.57 (0.04-0.54); EOS % 4.1 % (0.7-7.0); LYMPH # 1.19 (1.18-3.74); LYMPH % 8.7 % (19.3-53.1); MEAN PLATELET VOLUME 11.00 fl (9.4-12.4); MONO # 0.75 (0.24-0.82); MONO % 5.5 % (4.7-12.5); NEUT # 11.09 (1.56-6.13); NEUT % 80.6 % (34.0-71.1); RED CELL DISTRIBUTION WIDTH 20.9 % (11.6-14.4)
[2025-07-06 07:12] LABS: ALT/SGPT 23.0 U/L (12-78); AST/SGOT 93.0 U/L (15-37); BILIRUBIN TOTAL 6.35 mg/dL (0.3-1.2); BUN CREA RATIO 26.0 (7.0-25.0); CREATININE SERUM 2.73 mg/dL (0.70-1.30); GFR 23.84; GLOBULINA 4.7 G/DL (2.4-3.5); GLUCOSE FASTING 69.0 mg/dL (65-100); OSMOLALITY SERUM 272.0 MOSM/KG (275-295)
[2025-07-06] MEDS ORDERED: PANTOPRAZOLE SODIUM 40 MG TABLET.DR PO SCH (09:00)
[2025-07-06 15:27] LABS: URINE APPEARANCE Cloudy; URINE BILIRRUBIN Small (NEGATIVE); URINE BLOOD Moderate; URINE COLOR Dark Yellow; URINE GLUCOSE Negative (NEGATIVE); URINE KETONE Trace (NEGATIVE); URINE LEUKOCYTE Moderate; URINE NITRATE Negative; URINE PROTEIN 30 (NEGATIVE); URINE UROBILINOGEN 0.2 E.U./dl
[2025-07-06 15:28] LABS: URINE BACTERIA 643.1 uL (0.0-1933); URINE CAST 16.42 uL (0.0-1.40); URINE EPITHELIAL CELLS 64.9 uL (0.0-38.8); URINE RBC 142.8 uL (0.0-20.8); URINE WBC 103.9 uL (0.0-23.2)
[2025-07-06 16:10] LABS: URINE EPITHELIAL CELLS 0-4 /HPF
[2025-07-06] MEDS ORDERED: MEROPENEM 500 MG/VIAL VIAL IV SCH (17:00)
[2025-07-06] MEDS ORDERED: MORPHINE SULFATE 4 MG/ML CARTRIDGE IV PRN (19:00)
[2025-07-06] MEDS ORDERED: AA 4.25%/CAL/LYTES/DEXT 5% 1,000 ML PERIFERAL SCH (19:15)
[2025-07-06] MEDS ORDERED: LACTULOSE 20 G/30 ML BLIST.PACK PO NR (19:15)
[2025-07-06] MEDS ORDERED: ALBUMIN HUMAN-25 0.25GM/ML (50ML) VIAL IV SCH (21:00)
[2025-07-07] VITALS (9 sets, daily range): BP systolic 99–115; BP diastolic 63–73; O2SAT 97–99
[2025-07-07] MEDS ORDERED: LACTULOSE 20 G/30 ML BLIST.PACK PO SCH ×2 (09:00→13:00)
[2025-07-07] MEDS ORDERED: AA 4.25%/CAL/LYTES/DEXT 5% 1,000 ML PERIFERAL SCH (17:00)
[2025-07-07] MEDS ORDERED: FAMOTIDINE/PF 20 MG/2 ML VIAL IV PUSH STA (21:01)
[2025-07-08] VITALS (8 sets, daily range): BP systolic 104–117; BP diastolic 66–68; O2SAT 95–99
[2025-07-08] MEDS ORDERED: FAMOTIDINE/PF 20 MG/2 ML VIAL IV PUSH SCH (09:00)
[2025-07-08] MEDS ORDERED: LACTULOSE 10 G/15 ML ML RECTAL SCH (09:00)
[2025-07-08 11:48] LABS: BASO % 0.7 % (0.1-1.2); EOS # 0.81 (0.04-0.54); EOS % 5.9 % (0.7-7.0); LYMPH # 1.33 (1.18-3.74); LYMPH % 9.7 % (19.3-53.1); MEAN PLATELET VOLUME 10.40 fl (9.4-12.4); MONO # 0.93 (0.24-0.82); MONO % 6.8 % (4.7-12.5); NEUT # 10.48 (1.56-6.13); NEUT % 76.2 % (34.0-71.1); RED CELL DISTRIBUTION WIDTH 21.2 % (11.6-14.4)
[2025-07-08 13:01] LABS: BUN CREA RATIO 24.0 (7.0-25.0); CREATININE SERUM 3.67 mg/dL (0.70-1.30); GFR 16.94; GLUCOSE FASTING 104.0 mg/dL (65-100); OSMOLALITY SERUM 281.0 MOSM/KG (275-295)
[2025-07-08] MEDS ORDERED: fentaNYL 50 MCG PATCH.TD72 TD SCH (22:45)
[2025-07-09 01:51] VITALS: BP 128/80; O2SAT 98
[2025-07-09] MEDS ORDERED: FAMOTIDINE/PF 20 MG/2 ML VIAL IV PUSH SCH (09:00)
[2025-07-09 09:06] VITALS: BP 115/69; O2SAT 97
[2025-07-09 17:29] VITALS: BP 125/77
[2025-07-10 01:46] VITALS: BP 119/75; O2SAT 97
[2025-07-10 05:44] LABS: BASO % 0.6 % (0.1-1.2); EOS # 0.74 (0.04-0.54); EOS % 6.0 % (0.7-7.0); LYMPH # 1.07 (1.18-3.74); LYMPH % 8.6 % (19.3-53.1); MEAN PLATELET VOLUME 10.40 fl (9.4-12.4); MONO # 0.71 (0.24-0.82); MONO % 5.7 % (4.7-12.5); NEUT # 9.73 (1.56-6.13); NEUT % 78.5 % (34.0-71.1); RED CELL DISTRIBUTION WIDTH 20.7 % (11.6-14.4)
[2025-07-10 06:45] LABS: BUN CREA RATIO 27.0 (7.0-25.0); CREATININE SERUM 3.82 mg/dL (0.70-1.30); GFR 16.18; GLUCOSE FASTING 104.0 mg/dL (65-100); OSMOLALITY SERUM 294.0 MOSM/KG (275-295)
[2025-07-10] MEDS ORDERED: MEROPENEM 500 MG/VIAL VIAL IV SCH (09:00)
[2025-07-10] MEDS ORDERED: ALBUMIN HUMAN-25 0.25GM/ML (50ML) VIAL IV SCH (09:00)
[2025-07-10 09:23] VITALS: BP 99/60; O2SAT 97
[2025-07-10] MEDS ORDERED: LACTULOSE 10 G/15 ML ML RECTAL SCH ×2 (09:28→13:00)
[2025-07-10] MEDS ORDERED: 0.9 % SODIUM CHLORIDE 1,000 ML IV SCH (09:45)
[2025-07-10 20:12] VITALS: BP 121/68; O2SAT 95
[2025-07-10] MEDS ORDERED: ALBUMIN HUMAN 100 ML VIAL IV SCH (21:00)
[2025-07-11 00:36] VITALS: BP 109/69; O2SAT 97
[2025-07-11 08:33] LABS: GFR 15.52; GLUCOSE FASTING 71.0 mg/dL (65-100)
[2025-07-11 08:59] VITALS: BP 113/70; O2SAT 97
[2025-07-11 09:15] LABS: BUN CREA RATIO 29.0 (7.0-25.0); CREATININE SERUM 3.96 mg/dL (0.70-1.30); OSMOLALITY SERUM 299.0 MOSM/KG (275-295)
[2025-07-11] MEDS ORDERED: SPIRONOLACTONE 25 MG TABLET PO SCH (12:00)
[2025-07-11 18:01] VITALS: BP 96/58; O2SAT 96
[2025-07-11] MEDS ORDERED: fentaNYL 50 MCG PATCH.TD72 TD ONE (21:00)
[2025-07-12 01:10] VITALS: BP 93/51; O2SAT 99
[2025-07-12 06:29] LABS: GFR 14.7; GLUCOSE FASTING 100.0 mg/dL (65-100)
[2025-07-12 07:59] LABS: BUN CREA RATIO 29.0 (7.0-25.0); CREATININE SERUM 4.15 mg/dL (0.70-1.30); OSMOLALITY SERUM 305.0 MOSM/KG (275-295)
[2025-07-12] MEDS ORDERED: LACTULOSE 20 G/30 ML BLIST.PACK PO SCH (09:00)
[2025-07-12 09:11] VITALS: BP 107/59; O2SAT 93
[2025-07-12 17:27] VITALS: BP 100/50; O2SAT 93
[2025-07-12] MEDS ORDERED: MORPHINE SULFATE 4 MG/ML CARTRIDGE IV PRN (19:30)
[2025-07-12] MEDS ORDERED: fentaNYL 50 MCG PATCH.TD72 TD SCH (19:30)
[2025-07-13 01:09] VITALS: BP 105/61; O2SAT 98
[2025-07-13 06:12] LABS: BASO % 0.5 % (0.1-1.2); EOS # 0.53 (0.04-0.54); EOS % 3.2 % (0.7-7.0); LYMPH # 1.17 (1.18-3.74); LYMPH % 7.1 % (19.3-53.1); MEAN PLATELET VOLUME 10.70 fl (9.4-12.4); MONO # 0.71 (0.24-0.82); MONO % 4.3 % (4.7-12.5); NEUT # 13.95 (1.56-6.13); NEUT % 84.2 % (34.0-71.1); RED CELL DISTRIBUTION WIDTH 21.2 % (11.6-14.4)
[2025-07-13 06:55] LABS: ALT/SGPT 16.0 U/L (12-78); AST/SGOT 70.0 U/L (15-37); BILIRUBIN TOTAL 7.05 mg/dL (0.3-1.2); BILIRUBIN,CONJUGATED 5.19 mg/dL (0.0-0.2); CHOL HDL RATIO 11.4 (0-5.0); GLOBULINA 3.3 G/DL (2.4-3.5); GLUCOSE FASTING 106.0 mg/dL (65-100); LDL 56.0 mg/dl (0-130); VLDL 16.0 (0-39)
[2025-07-13 07:45] LABS: BUN CREA RATIO 28.0 (7.0-25.0); GFR 13.92; HDL 7.0 mg/dl (40-60); OSMOLALITY SERUM 307.0 MOSM/KG (275-295)
[2025-07-13 07:47] LABS: CREATININE SERUM 4.35 mg/dL (0.70-1.30)
[2025-07-13 09:17] VITALS: BP 106/54; O2SAT 93
[2025-07-13 09:51] LABS: UREA CLEARANCE 1.5 ML/MIN
[2025-07-13] MEDS ORDERED: SODIUM POLYSTYRENE SULFONATE 30G/8 TSP PO NR ×2 (13:00→21:00)
[2025-07-13 13:51] LABS: ABG PH 7.357 (7.35-7.45); ABG PO2 70.8 mmHg (80-100); BICARBONATE 13.3 mmol/l (23-25)
[2025-07-13 13:54] LABS: o2 50 %
[2025-07-13 14:18] VITALS: BP 115/65; O2SAT 98
[2025-07-13 17:38] VITALS: BP 104/70
[2025-07-13 17:41] VITALS: O2SAT 97
[2025-07-13 20:36] VITALS: O2SAT 98
[2025-07-14] VITALS (22 sets, daily range): BP systolic 82–180; BP diastolic 45–85; O2SAT 80–98
[2025-07-14 07:08] LABS: GLUCOSE FASTING 119.0 mg/dL (65-100)
[2025-07-14 07:40] LABS: BUN CREA RATIO 29.0 (7.0-25.0); GFR 12.61; OSMOLALITY SERUM 314.0 MOSM/KG (275-295)
[2025-07-14 07:41] LABS: CREATININE SERUM 4.74 mg/dL (0.70-1.30)
[2025-07-14] MEDS ORDERED: LACTULOSE 10 G/15 ML ML RECTAL SCH (09:00)
[2025-07-14] MEDS ORDERED: NOREPINEPHRINE BITARTRATE 1 MG/ML AMPUL IV ONE (09:26)
[2025-07-14] MEDS ORDERED: NOREPINEPHRINE BITARTRATE 8 MG in DEXTROSE 5 % IN WATER 250 ML IV SCH (09:30)
[2025-07-14] MEDS ORDERED: CALCIUM GLUCONATE 100 MG/ML VIAL IV NR (11:45)
[2025-07-14] MEDS ORDERED: FENTANYL TD SCH (12:00)
[2025-07-14] MEDS ORDERED: ALBUTEROL SULFATE 3 ML/2.5 MG AMPUL.NEB IH SCH (13:00)
[2025-07-15] VITALS (16 sets, daily range): BP systolic 104–133; BP diastolic 54–67; O2SAT 88–96
[2025-07-15 10:03] LABS: GLUCOSE FASTING 128.0 mg/dL (65-100)
[2025-07-15 10:04] LABS: BUN CREA RATIO 32.0 (7.0-25.0); GFR 12.86; OSMOLALITY SERUM 320.0 MOSM/KG (275-295)
[2025-07-15 10:06] LABS: CREATININE SERUM 4.66 mg/dL (0.70-1.30)
[2025-07-16] VITALS: O2SAT 84
[2025-07-16 00:30] VITALS: BP 103/60; O2SAT 77
[2025-07-16] MEDS ORDERED: MORPHINE SULFATE 2 MG/ML SYRINGE IV SCH (01:00)
[2025-07-16 03:47] VITALS: O2SAT 0
== END 2025-07-16 07:08 | disposition expired | DRG 435 ==
LOC: ER 17:46 → SURG 23:22 → SURH 07-03 15:21 → MEDJ 07-03 15:50
PROVIDERS: General Practice; Internal Medicine; Internal Medicine Hematology & Oncology; Internal Medicine Infectious Disease; Specialist/Technologist, Other Nephrology; Student in an Organized Health Care Education/Training Program; ADMIT Internal Medicine; ATTEND Internal Medicine
PROC: BW21ZZZ Computerized Tomography (CT Scan) of Abdomen and Pelvis (ICD-10-PCS; principal; 2025-07-02)
PROC: 4A12X4Z Monitoring of Cardiac Electrical Activity, External Approach (ICD-10-PCS; 2025-07-03)
PROC: BW4GZZZ Ultrasonography of Pelvic Region (ICD-10-PCS; 2025-07-09)
PROC: 3E0F7GC Introduction of Other Therapeutic Substance into Respiratory Tract, Via Natural or Artificial Opening (ICD-10-PCS; 2025-07-13)
DX: C22.0 Liver cell carcinoma (principal); J96.90 Respiratory failure, unspecified, unspecified whether with hypoxia or hypercapnia; K76.7 Hepatorenal syndrome; R65.21 Severe sepsis with septic shock; N17.9 Acute kidney failure, unspecified; N39.0 Urinary tract infection, site not specified; R18.8 Other ascites; T82.41XA Breakdown (mechanical) of vascular dialysis catheter, initial encounter; N28.9 Disorder of kidney and ureter, unspecified; K74.60 Unspecified cirrhosis of liver; J98.4 Other disorders of lung; E87.5 Hyperkalemia; D64.9 Anemia, unspecified; K72.90 Hepatic failure, unspecified without coma; R34 Anuria and oliguria; D72.829 Elevated white blood cell count, unspecified; D75.839 Thrombocytosis, unspecified; B96.20 Unspecified Escherichia coli [E. coli] as the cause of diseases classified elsewhere; B96.1 Klebsiella pneumoniae [K. pneumoniae] as the cause of diseases classified elsewhere; E11.9 Type 2 diabetes mellitus without complications; Z79.4 Long term (current) use of insulin; I10 Essential (primary) hypertension; R57.0 Cardiogenic shock; Z66 Do not resuscitate